=== PATIENT | female | born 1985 | race Hispanic/Latino ===

== ENCOUNTER 2022-04-02 21:10 | Inpatient (IN) | payer MEDICAID ==
[~2022-04-02] VITALS: Ht 152.4 cm; Wt 140.3 kg
[2022-04-03] MEDS ORDERED: ISENTRESS400 MG PO (02:09)
[2022-04-03] MEDS ORDERED: DOXYCYCLINE HY100 MG PO (02:09)
[2022-04-03] MEDS ORDERED: METRONIDAZOLE500 MG PO (02:09)
[2022-04-03] MEDS ORDERED: TRUVADA 200 MG1 EACH PO (02:09)
[2022-04-03] MEDS ORDERED: VITAFOL-OB+DHA1 EACH PO (02:11)
--- NOTE | 2022-04-03 09:33 | NUR ---
PT ADMITTED TO CCU FROM ER FOR FENTANYL OD. PT DOES OPEN EYES SLOWLY AND HAS 1-2 WORD RESPONSES BUT IS VERY DROWSY. ETC02 APPLIED AFTER PT BACK TO BED FROM STRETCHER AND ETC02 IS 69-75. PT ABLE TO SIT ON COMMODE BUT UNABLE TO VOID. ADMIT PROCESS STARTED. PT ON 1 L ATND 96% ON THIS.
--- NOTE | 2022-04-03 09:34 | NUR ---
NOTIFIED THAT NARCAN DRIP IS OFF, AND HAS BEEN OFF SINCE 0200 REPORTED FROM ER NURSE. ALSO NOTIFIED THAT ETCO2 IS 70. UPDATED HIM TO PATIENT ABLE TO TRANSFER FROM STRETCHER TO BSC AND OVER TO BED, BY WALKING A FEW STEPS, AND THAT PATIENT IS NOT SPEAKING A FULL WORD, BUT ATTEMPTING TO COMMUNICATE BY POINTING. HE STATED TO KEEP NARCAN DRIP AT BEDSIDE, BUT NO NEW ORDERS RECEIVED.
--- NOTE | 2022-04-03 11:30 | NUR ---
PATIENT BLADDER SCANNED FOR 618 ML. PT REMAINS ON 1 L NC WITH SP02 OF 95%.
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
--- NOTE | 2022-04-03 15:42 | NUR ---
ASIF EXAM UNABLE TO HAPPEN UNTIL PATIENT IS ABLE TO PROVIDE A CONSENT, WHICH SHE IS UNABLE TO DO AT THIS TIME. ASSESSMENT COMPLETE. PT REMAINS DROWSY BUT IS MORE RESPONSIVE AND ATTEMPTS TO MUMBLE SOME WORDS. PT STILL HAS YET TO VOID, AND PER DIRECTOR FOUNDATION, IT IS NOT RECOMMENDED TO HAVE ANY FURTHER CATHETERIZATION UNTIL THIS EXAM CAN BE DONE. BLADDER SCANNED AGAIN FOR 702 ML. GCS 12 AT THIS TIME. WILL CONTINUE TO MONITOR.
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
--- NOTE | 2022-04-03 16:18 | NUR ---
POISON CONTROL CALLED, UPDATED ON PATIENT STATUS. NOTHING NEW TO NOTE. THEY WILL CHECK BACK.
--- NOTE | 2022-04-03 16:22 | NUR ---
PHONE CALL TO DR. LORENZ AND PROVIDED AN UPDATE. PER MD, KEEP NARCAN GTT INFUSING AT CURRENT RATE UNTIL AFTER SANE EXAM AND THEN UPDATE MD AGAIN FOR ANY FURTHER ORDERS.
--- NOTE | 2022-04-03 16:34 | NUR ---
WASTE DISPOSAL ATTENDANT NOW IN ROOM TO PERFORM ASIF EXAM.
--- NOTE | 2022-04-03 16:56 | NUR ---
HERBIE VILLASENOR AT BEDSIDE FOR ASIF (EXAM).
--- NOTE | 2022-04-03 17:53 | NUR ---
SANE EXAM DONE. PT STILL DROWSY. DR. LORENZ IN ROOM TO SEE PATIENT AND INSTRUCTED THIS RN TO START TITRATING NARCAN GTT DOWN TO OFF TOLERATED. GTT TURNED DOWN TO 0.1 MG/HR AT THIS TIME. PT OKAY TO HAVE CLEAR LIQUIDS WHEN MORE AWAKE. WILL CONTINUE TO MONITOR. PT TO HAVE U/S FOR GESTATIONAL AGE TOMORROW.
--- NOTE | 2022-04-03 19:35 | NUR ---
PT ASSESSED WITH TWO RN'S PRESENT. PT'S LETHARGIC, MINIMALLY RESPONSIVE BUT FOLLOWS SIMPLE COMMANDS SUCH FORCEFULL COUGHING, BILATERAL INFORMATION SYSTEMS PLANNER, AND WIGGLES TOES. PT'S ABLE TO STATE HER NAME, HOWEREVER, HER SPEECH IS GARBLED SPEECH. PT DOES NOT ANSWER ANY OTHER QUESTIONS NOR FOLLOWS ANY FURTHER COMMANDS. PT REPOSITIONED, LS & HS AUSCULTATED. V/S ASSESSED. ALARM LIMITS SET AND IV PUMP VERIFIED. ASSESSMENT PERFORMED WITH HERBIE CHAPIN.
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
--- NOTE | 2022-04-03 21:45 | NUR ---
PT REMAINS NON-VERBAL AND MINIMALLY RESPONSIVE. PT FOLLOWS SIMPLE COMMANDS INTERMITTENTLY WITH VIGUROUS STIMULATION. PT'S etCO2 CONTINUES TO BE IN THE 60S. INFORMED BY RT OF MD ORDER FOR BIPAP. DR. LORENZ CONSULTED REGARDING CONCERN FOR AMS, BIPAP AND AIRWAY MANAGEMENT D/T POSSIBILITY OF ASPIRATION. DR. LORENZ REQUEST NASAL BIPAP, HOWEVER, INFORMED BY RT THE HOSPITAL DOES NOT HAVE THE EQUIPMENT FOR NASAL BIPAP. MD AWARE, ABG ORDERED AND PT PLACED ON BIPAP BY RT. COCNERNS FOR POSSIBLE ASPIRATION DISCUSSED WITH CREATIVE DEVELOPER FELA STONER. PT WILL BE ON A ONE TO ONE OBSERVATION DURING BIPAP TREATMENT. PT UNABLE TO SWALLOW OR STAY AWAKE/ ALERT LONG ENOUGHT TO TAKE PO MEDICATIONS. MD AWARE AND PLANS TO RE-EVALUATE PTS READINESS FOR PO MEDICATION IN THE MORNING.
--- NOTE | 2022-04-04 | NUR ---
PT ASSESSED WITH BRADY MAYES AT BEDSIDE. PT NOTED TO BE EXPERIENCING AN INCREASE IN COUGHING WHILE ON BIPAP. BIPAP REMOVED, SHORTLY AFTER PT NOTED TO VOMIT SMALL AMOUNTS OF BILE. ORAL SUCTIONING PERFORMED, PRN ANTIEMETIC ADMINISTERED AND PT PLACED BACK ON O2 VIA NC AT 4 LPM. NEW etCO2 ADAPTER APPLIED. etCO2 NOTED TO CHANGE FROM MID 60S TO MID 40S. PT CONTINUES TO BE MINIMALLY RESPONSIVE REQUIRING NOXIOUS STIMULI. PT RESPONDS VERBALLY WITH ONLY A FEW WORDS. PT WITH WEAK BILATERAL UPPER TRACK SUBWAY REPAIR SUPERVISOR AND WIGGLES BILATERAL LOWER EXTREMITIES. MD CONSULTED, AM CXR AND IV MAINTENANCE FLUIDS ORDERED. BIPAP TO REMAIN OFF.
--- NOTE | 2022-04-04 05:45 | NUR ---
PT ASSESSED WITH DARI RN PRESENT. PT REMAINS DIFFICULT TO WAKE, HOWEVER, LEVEL OF ALERTNESS IS SLIGHTLY IMRPROVED. PT CONTINUES TO FOLLOW SIMPLE COMMANDS WITH UPPER AND LOWER EXTREMITIES. PT ABLE TO COMMUNICATE AND IS CURRENTLY REQUESTING WATER. PT ABLE TO NOD TO YES OR NO QUESTIONS APPROPRIATELY. PT PLACED ON BEDPAN FOR NEED TO VOID. PT STATES SHE FEELS THE NEED TO URINATE, HOWEVER, SHE CANNOT VOID AT THIS TIME. MD CONSULTED FOR WAY CATHETER PLACEMENT. PT INFORMED OF WAY CATHETER AGREES TO CATHETER PLACEMENT. CATHETER PLACED WITH 2 RNS PRESENT. 700 CC OF UO NOTED. PT CLEANED AND REPOSITIONED IN BED. PT NOTED TO HAVE LOWGRADE FEVER OF 100.3. PT HAS BEEN IN A NSR TO ST AND NORMOTENSIVE THROUGHOUT THE NIGHT. LAST BM UNKNOWN. PT CONTINUES TO BE ON A NALOXONE GTT. D5 1/2 NS ADDED FOR MAINTENANCE FLUIDS. PT PARTCI[ATED IN FORCEFUL COUGHING AND DEEP BREATHING EXCERCISES. CXR ORDERED FOR THIS MONRING. LABS: CBC AND CHEMISTRY WNL. MAG 1.8 & PHOS 3.
--- NOTE | 2022-04-04 07:30 | NUR ---
PATIENT LYING IN BED, EYES CLOSED, RR ARE EVEN AND UNLABORED. PATIENT AROUSES SLIGHTLY TO VERBAL STIMULI, AND IS ABLE TO NOD HEAD NO WHEN ASKED IF SHE IS HAVING ANY PAIN.
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
--- NOTE | 2022-04-04 09:00 | NUR ---
Texted Allyson Reaves from [facility] (program for women using drugs). Asked if she is still the contact.
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
--- NOTE | 2022-04-04 09:50 | NUR ---
POISON CONTROL CALLED FOR UPDATE. RECOMMENDED WATCH PATIENT FOR 4-6 HOURS AFTER TURNING OFF NARCAN DRIP. DRIP TURNED OFF AT 0915.
--- NOTE | 2022-04-04 10:06 | NUR ---
PATIENT ABLE TO SIT UP AND OPEN EYES. SHE IS ASKING TO DRINK AND HAVE FOOD. SHE STATES SHE THINKS SHE IS ABLE TO SWALLOW PILLS. PATIENT GIVEN TYLENOL PO AND SWALLOWED WITHOUT DIFFICULTY AND NO COUGHING OR OTHER SIGNS OF ASPIRATION NOTED WITH SWALLOWING. PATIENT TOOK ALL OF HER PO MEDS WITHOUT DIFFICULTY. NOTIFIED OF UPDATE.
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
--- NOTE | 2022-04-04 13:28 | NUR ---
Received a return text from Allyson. She no longer working with this program. Gave me the name of JUAN CARLOS Carvalho, [phone] and asked I call her as she is now providing support to women for [facility]. Called and left a message and texted asking if she would be available today or tommorrow.
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
--- NOTE | 2022-04-04 14:32 | NUR ---
PATIENT SLEEPING IN CHAIR. ATTEMPTED TO TURN OF OXYGEN, WHICH WAS AT 1LNC. PATIENT DIPPED TO 86% ON RA WHILE SLEEPING, AND MAINTAINED. OXYGEN TURNED ON AT 0.5L NC, PATIENT'S SATS TO 92-93%.
--- NOTE | 2022-04-04 15:00 | NUR ---
Received a call from [employer], Madhuri is there requesting the face sheet. Walked Madhuri to CCU and gave her the face sheet, took her to the pts room and introduced her.
--- NOTE | 2022-04-04 15:31 | NUR ---
medications reconciled by pharmacy. The only recorded medications are the medications prescribed during this visit- antibiotics and HIV PEP medications
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
--- NOTE | 2022-04-04 18:47 | NUR ---
PATIENT RESTING. HAS BEEN ON RA FOR OVER AN HOUR. PATIENT TURNED TO LEFT SIDE IN BED AND O2 SATS DROPPED TO 80%. PATIENT PLACED BACK ON 2LNC WHILE RESTING ON HER SIDE. PATIENT ALSO REQUESTED ICE CREAM AND WAS GIVEN SAME. NO CHANGES SINCE LAST ASSESSMENT.
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
--- NOTE | 2022-04-05 06:46 | NUR ---
PT MUCH IMPROVED THROUGHOUT THE NIGHT. PT AWAKENS BY SOFT VERBAL STIMULI. PT IS ORIENTED X 4 WITH A GCS OF 15. PT CONTINUES TO FOLLOW ALL COMMANDS. PT HAS BEEN IN A NSR TO ST, NORMOTENSIVE AND A-FEBRILE THROUGHOUT THE NIGHT. PT REMAINS ON O2 VIA NC AT 0.5 LPM. LS CLEAR TO DIMINISHED IN THE BASIS. PT PARTICIPATES IN BREATHING EXERCISES. ISP AND FLUTTER VALVE AT BEDSIDE. PT'S ORAL INTAKE IMRPOVED, HOWEVER, PT CONTINUES TO NEED COACHING FOR FLUID INTAKE. PT WITH ADEQUATE UO. LABS: CBC AND CHEMISTRY UNREMARKABLE.
--- NOTE | 2022-04-05 07:35 | NUR ---
PT IS RESTING IN BED WITH FLUIDS GOING IN THE RIGHT AC. PT REQUESTED ICE CHIPS AND THEY WERE PROVIDED. PT HAS CALL LIGHT WITHIN REACH AND WILL CONTINUE TO MONITOR.
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
--- NOTE | 2022-04-05 09:00 | NUR ---
Called and spoke with Christiana. She states Allegra from [facility] is on her way to give pt options. They do have housing at [facility], [email or web address] [place] [facility], and a safe home in [facility]. I asked if there is anything else they need and she requests I ask Mitesh if she wants to complete her swabs. We also discussed changing pts [place] medicaid [place]. I did let her know we need to confirm she is staying in [place]. If she returns to [place] to her grandmother's home [place] medicaid will not be in place. Allegra Friend, RITCHIE [phone].
--- NOTE | 2022-04-05 09:20 | NUR ---
Took Allegra to meet Mitesh. Pt is very sleepy and unable to answer questions. Allegra will return this afternoon.
--- NOTE | 2022-04-05 09:26 | NUR ---
FARA FROM [facility] HERE TO SEE PATIENT. PATIENT DROWSY AGAIN AND HARD TO AROUSE AT THIS TIME. SHE DOES OPEN EYES BRIEFLY BUT GOES BACK TO SLEEP. OXYGEN TURNED OFF AGAIN TO SEE HOW PATIENT DOES. 92% AT THIS TIME. CONTINUE TO MONITOR.
--- NOTE | 2022-04-05 10:35 | NUR ---
DR. LORENZ IN TO SEE PATIENT. PLAN OF CARE DISCUSSED. PT HUNGRY AND ORDERED A SANDWICH BOX FOR HER, WELL PIZZA FOR HER LUNCH. RAYNA TO BE D/C. PT TO TRANSFER TO THE MEDICAL FLOOR WITHOUT TELEMETRY. WILL CONTINUE TO MONITOR.
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
--- NOTE | 2022-04-05 12:23 | NUR ---
LUNCH WAS BROUGHT IN FOR PT. PT AGREED TO MOVING TO CHAIR TO EAT AND REST. WAY CATHETER WAS REMOVED BY STUDENT NURSE. BALLOON WAS DEFLATED AND CATHETER WAS REMOVED. PT STOOD AND MOVED FROM BED TO CHAIR ON HER OWN. ASSESSMENT WAS COMPLETED ALONG WITH A LINEN CHANGE OF PTS BEDDING. PT IS NOW EATING HER LUNCH AND RESTING IN THE CHAIR. CALL LIGHT IS WITHIN REACH. WILL CONTINUE TO MONITOR.
--- NOTE | 2022-04-05 13:45 | NUR ---
Spoke with Allegra in my office. She was able to speak with Mitesh. They are attempting to place pt at [facility]. She can reside there with her 3 yo. I will notify [employer] pt needs to switch from [place] medicaid to [place]. In and spoke with Miguelbirdie and asked if she has food stamps or other benefits from [place]. There is a concern is a concern if pt has these in place, [facility] can requests she return funds for the month for other programs. Miguelbirdie denies she uses any other programs and is only on medical through [facility]. Called and spoke with Bruna from [employer] and she will start process of transfering pt to [place]HP. She states pt will need an [place] address. I will call RITCHIE for an [facility] address. Called and spoke with Allegra and she will call me back.
--- NOTE | 2022-04-05 14:36 | NUR ---
[employer] BOARD CERTIFIED BEHAVIORAL ANALYST HAS VISITED PATIENT AND IS MAKING PLANS FOR A SAFE DISCHARGE. PT UP IN CHAIR STILL AT THIS TIME. WILL CONTINUE TO MONITOR.
--- NOTE | 2022-04-05 15:00 | NUR ---
Received a call from Allegra, she will get an address for this pt to use. They are discussing now and will call be back. Updated I spoke with Bruna from [employer] and an address is required. She could not complete at this time.
--- NOTE | 2022-04-05 15:47 | NUR ---
PT IS RESTING IN CHAIR IN THE RECLINED POSITION. DECLINES NEEDING ANYTHING. CALL LIGHT WITHIN REACH. WILL CONTINUE TO MONITOR.
--- NOTE | 2022-04-05 16:52 | NUR ---
PT WAS ABLE TO TOLERATE A SHOWER WITH THE ASSITANCE OF A CHAIR. PT THEN DRIED SELF OFF AND WALKED BACK TO THE PTS ROOM. PTS ASSESSMENT WAS DONE AND THE PT IS NOW RESTING IN THE BED WITH SCDS ON. CALL LIGHT WITHIN REACH. WILL CONTINUE TO MONITOR.
--- NOTE | 2022-04-05 18:26 | NUR ---
PT ATE 10% OF DINNER AND STATED THE CHICKEN NOODLE SOUP HURT HER STOMACH. THE PT PUT HER SELF BACK TO BED AND IS RESTING.
--- NOTE | 2022-04-05 20:00 | NUR ---
RECEIVED REPORT FROM CCU RN. PATIENT IS RESTING IN BED WITH EYES CLOSED, RR 17. PATIENT IS NOW IN ROOM 107. CALL LIGHT IN REACH. BED ALARM ON FOR SAFETY.
--- NOTE | 2022-04-05 20:00 | NUR ---
PT TRANSFERED VIA BED FROM CCU TO ROOM 107. ALL PERSONAL SUPPLIES MOVED WITH THIS ASSOCIATE JAVA DEVELOPER, WELL BLADE. NOTIFIED SWITCHBOARD OF THE CHANGE. CHAIR INSPECTOR AND LEVELER AWARE.
--- NOTE | 2022-04-05 20:05 | NUR ---
PT BEING TRANSFERRED TO [facility]. V/S OBTAINED AND NURSE REPORT GIVEN TO DANDRE STONER.
--- NOTE | 2022-04-05 22:21 | NUR ---
PATIENT ASSESMENT COMPLETED. PATIENT UP TO THE BR A 1PA. PATIENT ABLE TO VOID. PATIENT IS BACK IN BED RESTING. PATIENTS VITALS TAKEN AND RECORDED. INTAKE AND OUTPUT RECORDED. PATIENTS IV FLUSHED AND SL PER ORDER. PATIENTS P M MEDS GIVEN PER ORDER. PATIENT DENIES ANY PAIN. SNACKS PROVIDED. PATIENT IS AAOX4. PATIENT DENIES ANY FURTHER NEEDS. PATIENT IS FORGETFUL AT TIMES. BED ALARM PLACED ON FOR SAFETY.
--- NOTE | 2022-04-06 00:08 | NUR ---
PATIENT IS RESTING IN BED WITH EYES CLSOED, RR 16. CALL LIGHT IN REACH. BED ALARM ON FOR SAFETY.
--- NOTE | 2022-04-06 01:21 | NUR ---
call light answered, pt up sba to void-500mls output noted. pt back to bed, steady on feet. bed alarm resumed and call light in reach. scd's in place, no additional needs or concerns verbalized.
--- NOTE | 2022-04-06 02:12 | NUR ---
PATIENT IS RESTING IN BED WITH EYES CLOSED, RR 17. CALL LIGHT IN REACH. BED ALARM ON FOR SAFETY.
--- NOTE | 2022-04-06 04:04 | NUR ---
PATIENT ASSISTED TO THE BR A SBA. PATIENT ABLE TO VOID. PATIENT IS BACK IN BED RESTING. PATIENT PROVIDED WITH SNACKS AND FRESH ICE WATER. PATIENT HAS SCDS IN PLACE. NO FURHTHER NEEDS NOTED. CALL LIGHT IN REACH.
--- NOTE | 2022-04-06 05:58 | NUR ---
PATIENT IS RESTING IN BED. PATIENT DENIES ANY NEEDS. VITALS TAKEN AND RECORDED BY BIOINFORMATICS ENGINEER. CALL LIGHT IN REACH. BED ALARM ON FOR SAFETY.
--- NOTE | 2022-04-06 06:32 | NUR ---
PT CALLED REQUESTED BATHROOM. SBA TO BATHROOM. BACK, SCD'S IN PLACE. BEDALARM PLACED. REQUESTED ORANGE JUICE, AWARE THAT BREAKFAST WILL BE COMING SOON.
--- NOTE | 2022-04-06 07:22 | NUR ---
Report from Shreyas Curtis RN. Patient lying in bed. Respirations even and unlabored. Allowed to rest at this time. Call light in reach.
--- NOTE | 2022-04-06 07:55 | NUR ---
Spoke to Amanda Friend from [facility]. Updated the discarge plan. Amanda will be coming to talk to Mitesh this morning. Amanda states they will arrange housing for Mitesh to be DC'd tomorrow. Amanda Friends phone number is [phone]. Amanda will update DC planner intern after conversation with Mitesh.
--- NOTE | 2022-04-06 08:01 | NUR ---
Spoke with Mitesh yesterday about establishing care with a PCP in [place]. She now intends to live here. Discussed the 3 clinics available in [place]. [facility] as she has already met Dr. Verdugo. I will fax her chart to [facility] and request appt to establish care with any PCP available in the next 10 days.
--- NOTE | 2022-04-06 09:18 | NUR ---
LETHARGIC THIS AM. TAKES MEDICATIONS WITHOUT DIFFICULTY. DENIES PAIN. CALL LIGHT IN REACH. ASSESSMENT COMPLETED.
--- NOTE | 2022-04-06 09:30 | NUR ---
POISON CONTROL CALLS FOR UPDATE ON PATIENT STATUS, VITALS GIVEN. UPDATE PROVIDED. NO NEW RECOMMENDATIONS AT THIS TIME.
--- NOTE | 2022-04-06 09:53 | NUR ---
Spoke with [facility] member trying to help place patient in [place] [facility]. States patient will need a clean UA to be placed, if not, they will need to find other arrangments for her. Will notify case management after their AM meeting of needs. Patient provided paperwork from [employer] to fill out. Informed of need of her to fill paperwork out. Voices understanding. Denies other needs at this time.
--- NOTE | 2022-04-06 11:00 | NUR ---
Notified by staff, pt has to have a negative drug screen before she can be admitted to [facility]. Allegra from [facility] visited today and this is part of their requirement. I will call Allegra and see if there is anyway this can be bypassed due to pts. history.
--- NOTE | 2022-04-06 14:04 | NUR ---
Lying in bed. REspirations even and unlabored. Allowed to rest. Call light in reach.
--- NOTE | 2022-04-06 14:10 | NUR ---
Called and spoke with Allegra. She states no clean drug screen, no admittance as this is a home for women attempting to get clean and sober. Spoke with Dr. Street and drug urine test ordered. NOtified aids and they will take a hat into the room and obtain with next void.
--- NOTE | 2022-04-06 15:07 | NUR ---
PT ORDERS IN FOR UA. PT UP TO BATHROOM W/CLEAN HAT. URINE COLLECTED AND SENT TO LAB.
--- NOTE | 2022-04-06 15:30 | NUR ---
Viewed drug screen, pt remains + for amphetamines and methamphetamines. Will update Allegra from [facility]. Spoke with Dr. Street he will notify Dr. Hastings the oncoming hospitalist.
--- NOTE | 2022-04-06 17:28 | NUR ---
ALERT AND ORIENTED. STANDBY ASSIST. SCD'S REMAIN IN PLACE. TOLERATING REGULAR DIET. SLEEPING INTERMITTENTLY THROUGHOUT TODAY. DENIES PAIN. [facility] WORKER IN TO SEE PATIENT MULTIPLE TIMES TODAY. REPEAT UA SHOWS METHAMPHETAMINE POSITIVE. SANE PAPERWORK PROVIDED TO PATIENT AND INSTRUCTED TO FILL OUT, HAS NOT YET FILLED IT OUT. NO PRN MEDICATIONS ADMINISTERED TODAY. REMAINS ON IV AND PO ANTIBIOTICS.
--- NOTE | 2022-04-06 17:37 | NUR ---
PATIENT IS RESTING IN BED, ATE 50% OF HER DINNER. PATIENT DENIES OTHER NEEDS AT THIS TIME.
--- NOTE | 2022-04-06 19:20 | NUR ---
RECEIVED REPORT FROM OFFGOING SHIFT, HOURLY ROUNDING INITIATED.
--- NOTE | 2022-04-06 21:58 | NUR ---
IN PT ROOM FOR ROUNDING. PT IS CALM AND COOPERATIVE, ABLE TO MAKE NEEDS KNOWN. PT RESTING ON BACK, ASSISTED WITH LEARNING MUSIC CHANNELS ON TELEVISION. PT HAS NO COMPLAINT OF PAIN OR DISCOMFORT AT THIS TIME, CALL LIGHT IN REACH.
--- NOTE | 2022-04-06 22:58 | NUR ---
in pt room for rounding. pt resting on back, listening to music. pt states she is comfortable and has no pain or discomfort. pt call light in reach.
--- NOTE | 2022-04-07 00:13 | NUR ---
in pt room for rounding. pt resting on side, reading on her phone. pt states no complaint of pain or discomfort, call light in reach.
--- NOTE | 2022-04-07 00:56 | NUR ---
IN PT ROOM FOR ROUNDING. PT RESTING ON SIDE, EYES CLOSED, BREATHING EVEN AND UNLABORED. PT HAS NO INDICATIONS OF PAIN OR DISCOMFORT, CALL LIGHT IN REACH.
--- NOTE | 2022-04-07 03:25 | NUR ---
IN PT ROOM FOR ROUNDING. PT RESTING ON BACK, EYES CLOSED, BREATHING EVEN AND UNLABORED, CALL LIGHT IN REACH.
--- NOTE | 2022-04-07 04:06 | NUR ---
IN PT ROOM FOR ROUNDING. PT RESTING ON BACK, EYES CLOSED, BREATHING EVEN AND UNLABORED. PT CALL LIGHT IN REACH.
--- NOTE | 2022-04-07 05:29 | NUR ---
pt resting in bed. vitals and is and os complete. pt declined restroom needs. pt provided ice water and apple juice. pt provided warm wash cloth. no needs at this time. call light within reach
--- NOTE | 2022-04-07 07:30 | NUR ---
pt refused to get up to chair. call light within reach no further tasks at this time
--- NOTE | 2022-04-07 07:48 | NUR ---
RECIEVED SHIFT REPORT. PT RESTING IN BED, AWAKE. CALL LIGHT WITHIN REACH. DENIES ANY NEEDS AT THIS TIME.
--- NOTE | 2022-04-07 08:26 | NUR ---
MORNING ASSESSMENT COMPLETE. PT RESTING IN BED, DROWSY, EASY TO AROUSE. A&O X4. ABD SOUNDS ACTIVE BILAT UPPER QUAD AND RIGHT LOWER, HYPOACTIVE LLQ. DENIES PAIN. STATES HAS NAUSEA BUT REFUSED PRN NAUSEA MEDICATION. CALL LIGHT WITHIN REACH. ABX ADMINISTERING AT THIS TIME.
--- NOTE | 2022-04-07 11:09 | NUR ---
PER MD AND AM MEETING PATIENT AWAITING [facility]GE TO [facility]. URINE TOX SCREEN ORDER AND STAFF AWARE.
--- NOTE | 2022-04-07 11:28 | NUR ---
collected and send urine to lab
--- NOTE | 2022-04-07 13:07 | NUR ---
PT ALERT, RESTING IN BED WITH TV ON. PT PLEASANT, WELCOMED ME IN RM. PT THEN REQUESTED VISIT FROM . INFORMED FR YOUNG-HE WILL VISIT AFTER MASS. Isamar CASTELLANOSPOST. WILL FOLLOW
--- NOTE | 2022-04-07 17:01 | NUR ---
Received a call from [facility]. Updated urine test remains +. We discussed pt no longer has a medical need to remain and I asked if they have a place for this pt to stay if her urine remains +. She states she will work on this. She had me review meds to see if there is anything which would cause pts tox screen to remain + or give a false +. She will call me back.
--- NOTE | 2022-04-07 17:47 | NUR ---
PT RESTING COMFORTABLY, DENIES FURTHER NEEDS. CALL LIGHT WITHIN REACH
--- NOTE | 2022-04-07 19:27 | NUR ---
RECEIVED BEDSIDE REPORT FROM OFFGOING SHIFT, HOURLY ROUNDING INITIATED.
--- NOTE | 2022-04-07 20:59 | NUR ---
IN PT ROOM FOR ASSESSMENT, PT RESTING ON BACK, EYES OPEN WATCHING TELEVISION. PT HAS NO NEW COMPLAINT TODAY, STATING SHE IS STARTING TO FEEL MORE "WITH IT". PT HAS NO COMPLAINT OF PAIN OR DISCOMFORT, CALL LIGHT IN REACH.
--- NOTE | 2022-04-07 22:05 | NUR ---
IN PT ROOM FOR ROUNDING. PT WATCHING TV, NO COMPLAINT OF PAIN OR DISCOMFORT, CALL LIGHT IN REACH
--- NOTE | 2022-04-07 23:23 | NUR ---
IN PT ROOM FOR ROUNDING. PT RESTING WITH EYES CLOSED, BREATHING EVEN AND UNLABORED, NO INDICATION OF PAIN OR DISCOMFORT AT THIS TIME, CALL LIGHT IN REACH.
--- NOTE | 2022-04-08 00:46 | NUR ---
IN PT ROOM FOR ROUNDING. PT RESTING WITH TV ON, EYES CLOSED, BREATHING EVEN AND UNLABORED, CALL LIGHT IN REACH
--- NOTE | 2022-04-08 02:59 | NUR ---
IN PT ROOM FOR ROUNDING. PT RESTING ON SIDE, EYES CLOSED, BREATHING EVEN AND UNLABORED, CALL LIGHT IN REACH.
--- NOTE | 2022-04-08 07:00 | NUR ---
bedside report from alka saunders, pt awake in bed with call light in reach - denies needs. white board updated.
--- NOTE | 2022-04-08 08:42 | NUR ---
after breakfast and am pills pt had 700 ml emisis, early - 4 weeks - pt reports this happens in am with meds and other times with pills. reports has hard time with pills and gagging.
--- NOTE | 2022-04-08 08:59 | NUR ---
this rn discussed pt plan and updated dr gresham about emisis - new order for ua today - explained to pt, new hat in br and sign on door. pt requested yogurt and juice - nausea improved.
--- NOTE | 2022-04-08 09:01 | NUR ---
PT RESTING IN BED. VITALS AND IS AND OS COMPLETE. PT DECLINED RESTROOM NEEDS. PT REQ ICE AND JUICE. JUICE AND ICE PROVIDED. NO FURTHER NEEDS. CALL LIGHT WITHIN REACH.
--- NOTE | 2022-04-08 10:06 | NUR ---
REAL ESTATE RENTAL AGENT CALLED YARELIS FRIEND FROM [facility] TO GIVE HER A UPDATE. PATIENT CAN BE DISCHARGED TODAY. DISCHARGE PLAN WILL BE THAT PATIENT CAN BE DISCHARGED TODAY IF MEDICALLY STABLE. ALSO [facility] IS REQUESTING A NEGATIVE DRUG SCREEN. DRUG SCREEN TODAY IS PENDING.REMINDED LILA THAT PATIENT NEEDS A PLACE TODAY TO GO TO WHETHER PATIENT IS NEATIVE OR POSITIVE DRUG SCREEN. LILA VOICED UNDERSTANDING AND WILL CALL SCIENTIFIC PROGRAMMER BACK.
--- NOTE | 2022-04-08 11:36 | NUR ---
DRUG SCREEN DONE AND IT IS POSITIVE. SPOKE TO YARELIS AT [facility] AND TOLD HER RESULTS.YARELIS STATES THAT THE PATIENT NEEDS TO CALL THE [facility] FOR A ROOM. PATIENT DECLINES TO CALL [facility] AND WANTS TO CALL HER GRANDMOTHER TO COME AND GET HER. CERTIFIED ADAPTED PHYSICAL EDUCATOR ASKS PATIENT TO MAKE THE CALL SO WE CAN WE CAN UPATE HER DISCHARGE PLAN IF NEEDED. DC HIGHWAY COMMISSIONER WILL GIVE THE PATIENT TIME TO CALL FAMILY.
--- NOTE | 2022-04-08 12:04 | NUR ---
PT IN SHOWER, INFORMED FR KIMBERLEE TO CHECK ON PT.
--- NOTE | 2022-04-08 12:53 | NUR ---
DIANELYS LUCAS RODERICK'S SENIOR COMPUTER SPECIALIST WAS CONTACTED BY RODERICK. RODERICK WOULD LIKE TO BE DISCHARGED AND GO WITH HER SENIOR COMPUTER SPECIALIST. RODERICK WILL HAVE ANOTHER DRUG TEST AT [facility] TO SEE IF HER NARCOTIC LEVELS ARE GOING DOWN. DR. GREEN UPDATED AND DISCHARGE ORDERS WILL BE OBTAINED.DEPENDING ON RESULTS RODERICK MAY STAY AT [facility] OR A [facility].
== END 2022-04-08 13:20 | disposition home or self-care (01) | DRG 831 ==
LOC: ED 21:10 → CCU 04-03 08:01 → MS 04-03 08:01 → CCU 04-03 08:01 → MS 04-03 08:01
PROVIDERS: ADMIT Family Medicine; ATTEND Internal Medicine
DX: O9A.211 Injury, poisoning and certain other consequences of external causes complicating pregnancy, first trimester (principal); J69.0 Pneumonitis due to inhalation of food and vomit; O99.511 Diseases of the respiratory system complicating pregnancy, first trimester; Z20.822 Contact with and (suspected) exposure to COVID-19; O9A.411 Sexual abuse complicating pregnancy, first trimester; T40.411A Poisoning by fentanyl or fentanyl analogs, accidental (unintentional), initial encounter; Z3A.01 Less than 8 weeks gestation of pregnancy; O23.41 Unspecified infection of urinary tract in pregnancy, first trimester; O99.011 Anemia complicating pregnancy, first trimester; Z20.2 Contact with and (suspected) exposure to infections with a predominantly sexual mode of transmission; Z79.899 Other long term (current) drug therapy; X58.XXXA Exposure to other specified factors, initial encounter; Y07.9 Unspecified perpetrator of maltreatment and neglect
CPT/HCPCS: 36415; 36600; 71045; 76801; 80048; 80053; 81001; 82803; 83690; 83735; 84100; 84702; 85025; 85060; 86706; 86707; 87088; 87502; 94640; 94660; 94668; 94760; A9270; G0480; J0696; J1956; J2310; J2405; J7060; J7121; U0003